=== PATIENT | male | born 2000 | race Caucasian/White ===

== ENCOUNTER 2023-02-22 04:00 | Day surgery (SDC) | payer OTHER ==
[2023-02-22] VITALS (244 sets, daily range): BP systolic 94–148; BP diastolic 43–97
[~2023-02-22] VITALS: Ht 185.4 cm; Wt 74.4 kg
[2023-02-22 08:19] LABS: BASO% 0.7 % (0-3); EOS% 4.5 % (0-8); HEMATOCRIT 39.1 % (39.0-50.0); HEMOGLOBIN 12.7 g/dl (14.0-18.0); LYMPH% 34.5 % (15-41); MEAN CELL VOLUME 89.9 fL CALC (80.0-100.0); MEAN CORPUSCULAR HGB 29.2 pG CALC (26.0-32.0); MEAN CORPUSCULAR HGB CONC 32.5 g/dL CAL (32.0-36.0); MONO% 8.7 % (2-13); NEUT# 3.13 thou/uL (1.82-7.42); NEUT% 51.6 % (42-76); RED BLOOD COUNT 4.35 mill/uL (4.70-6.10); RED CELL DISTRI WIDTH 12.2 % (11.5-15.5)
[2023-02-22 08:56] LABS: ALKALINE PHOSPHATASE 47 u/l (38-126); ANION GAP 12 (6-22 (CALC)); BILIRUBIN, TOTAL 0.4 mg/dL (0.2-1.3); BUN 19 mg/dL (9-20); BUN/CREATININE RATIO 24 (12-20 (CALC)); CARBON DIOXIDE 27 mmol/l (22-30); CHLORIDE 103 mmol/l (95-108); CREATININE 0.8 mg/dL (0.7-1.3); GFR FOR AFR.AMER. > 60 ML/MIN (>=60 (CALC)); GFR OTHER RACES > 60 ML/MIN (>=60 (CALC)); SGOT/AST 39 u/l (17-59); SODIUM 138 mmol/l (137-146)
[2023-02-22] MEDS ORDERED: CLONIDINE0.1 MG PO (16:00)
[2023-02-22] MEDS ORDERED: KLONOPIN2 MG PO (16:00)
[2023-02-22] MEDS ORDERED: NALTREXONE50 MG PO (16:00)
[2023-02-23 04:19] VITALS: BP 108/51
[2023-02-23 07:42] LABS: BASO% 0.1 % (0-3); HEMATOCRIT 42.3 % (39.0-50.0); IMMATURE GRANULOCYTES 0.2 % (0.0-5.0); LYMPH% 5.6 % (15-41); MEAN CELL VOLUME 88.1 fL CALC (80.0-100.0); MEAN CORPUSCULAR HGB 29.2 pG CALC (26.0-32.0); MEAN CORPUSCULAR HGB CONC 33.1 g/dL CAL (32.0-36.0); MONO% 1.6 % (2-13); NEUT# 8.54 thou/uL (1.82-7.42); NEUT% 92.5 % (42-76); RED BLOOD COUNT 4.8 mill/uL (4.70-6.10); RED CELL DISTRI WIDTH 12.2 % (11.5-15.5)
[2023-02-23 07:49] LABS: ALBUMIN 4.3 g/dL (3.2-5.0); ALKALINE PHOSPHATASE 48 u/l (38-126); ANION GAP 18 (6-22 (CALC)); BUN 19 mg/dL (9-20); BUN/CREATININE RATIO 22 (12-20 (CALC)); CARBON DIOXIDE 22 mmol/l (22-30); CHLORIDE 101 mmol/l (95-108); CREATININE 0.9 mg/dL (0.7-1.3); GFR FOR AFR.AMER. > 60 ML/MIN (>=60 (CALC)); GFR OTHER RACES > 60 ML/MIN (>=60 (CALC)); MAGNESIUM 1.7 mg/dL (1.6-2.3); POTASSIUM 3.8 mmol/l (3.5-5.1); SGOT/AST 44 u/l (17-59); SODIUM 137 mmol/l (137-146); TOTAL PROTEIN 6.4 g/dL (6.3-8.2)
[2023-02-23 07:50] VITALS: BP 109/57
[2023-02-23 07:50] LABS: BILIRUBIN, TOTAL 0.8 mg/dL (0.2-1.3)
[2023-02-24 03:20] VITALS: BP 139/69
[2023-02-24 05:16] LABS: ALBUMIN 4.7 g/dL (3.2-5.0); ALKALINE PHOSPHATASE 45 u/l (38-126); ANION GAP 16 (6-22 (CALC)); BILIRUBIN, TOTAL 0.9 mg/dL (0.2-1.3); BUN 25 mg/dL (9-20); BUN/CREATININE RATIO 26 (12-20 (CALC)); CARBON DIOXIDE 23 mmol/l (22-30); CHLORIDE 104 mmol/l (95-108); CREATININE 0.9 mg/dL (0.7-1.3); GFR FOR AFR.AMER. > 60 ML/MIN (>=60 (CALC)); GFR OTHER RACES > 60 ML/MIN (>=60 (CALC)); SGOT/AST 31 u/l (17-59); SODIUM 140 mmol/l (137-146)
[2023-02-24 07:03] VITALS: BP 137/78
== END 2023-02-24 09:44 | disposition home or self-care (01) | DRG 897 ==
LOC: EDBD 04:00 → ANR 04:00 → MS2 04:00 → ANR 09:00
PROVIDERS: ATTEND Anesthesiology
DX: F11.20 Opioid dependence, uncomplicated (principal)
CPT/HCPCS: J2354; J3475